=== PATIENT | female | born 1980 | race Caucasian/White ===

== ENCOUNTER 2018-07-23 11:06 | Emergency (ER) | payer OTHER ==
[~2018-07-23] VITALS: Ht 175.3 cm; Wt 127.0 kg
[~2018-07-23 11:06] MED LIST: AVALIDE 300-12.1 TA1; MAXFE CAPLET1 EACH PO; NORFLEX100MG; OMEPRAZOLE40 MG; PRILOSEC OTC20 MG; SULINDAC200 MG
[2018-07-23] MEDS ORDERED: ULTRACET (11:36)
[2018-07-23] MEDS ORDERED: NEURONTIN600 MG (11:37)
== END 2018-07-23 16:05 | disposition home or self-care (01) ==
LOC: ER 11:06
DX: N92.1 Excessive and frequent menstruation with irregular cycle (principal)

== ENCOUNTER 2018-08-01 12:46 | Inpatient (IN) | payer OTHER ==
[~2018-08-01 12:46] MED LIST changes: +NEURONTIN600 MG; +ULTRACET
[2018-08-04] MEDS ORDERED: LEVOTHYROXINE50 MCG PO (17:24)
[2018-08-04] MEDS ORDERED: MEGESTROL ACETA40 MG PO (17:24)
== END 2018-08-04 17:38 | disposition home or self-care (01) | DRG 760 ==
LOC: MEDI 12:46
PROC: BU4CZZZ Ultrasonography of Uterus and Ovaries (ICD-10-PCS; 2018-08-02)
PROC: 30233N1 Transfusion of Nonautologous Red Blood Cells into Peripheral Vein, Percutaneous Approach (ICD-10-PCS; principal; 2018-08-03)
DX: N92.1 Excessive and frequent menstruation with irregular cycle (principal); D62 Acute posthemorrhagic anemia; D57.80 Other sickle-cell disorders without crisis; M32.8 Other forms of systemic lupus erythematosus; E03.8 Other specified hypothyroidism; K21.9 Gastro-esophageal reflux disease without esophagitis; I10 Essential (primary) hypertension; M79.7 Fibromyalgia; E66.8 Other obesity

== ENCOUNTER 2020-08-19 15:16 | Emergency (ER) | payer OTHER ==
[~2020-08-19] VITALS: Ht 175.3 cm; Wt 131.5 kg
[~2020-08-19 15:16] MED LIST changes: +LEVOTHYROXINE50 MCG PO; +MEGESTROL ACETA40 MG PO
[2020-08-19] MEDS ORDERED: TRAZODONE HCL150 MG (15:35)
[2020-08-19] MEDS ORDERED: SIMVASTATIN5 MG (15:35)
== END 2020-08-19 22:57 | disposition home or self-care (01) ==
LOC: ER 15:16
DX: D50.0 Iron deficiency anemia secondary to blood loss (chronic) (principal); D57.80 Other sickle-cell disorders without crisis; N93.8 Other specified abnormal uterine and vaginal bleeding; N88.8 Other specified noninflammatory disorders of cervix uteri; M32.8 Other forms of systemic lupus erythematosus; R53.1 Weakness; R06.02 Shortness of breath; Z03.818 Encounter for observation for suspected exposure to other biological agents ruled out

== ENCOUNTER 2020-08-22 14:13 | Inpatient (IN) | payer OTHER ==
[~2020-08-22] VITALS: Ht 175.3 cm; Wt 290.0 kg
[~2020-08-22 14:13] MED LIST changes: +SIMVASTATIN5 MG; +TRAZODONE HCL150 MG
[2020-08-23] MEDS ORDERED: MECLIZINE HCL25 MG (13:14)
[2020-08-23] MEDS ORDERED: NAPROXEN SODIU550 MG (13:14)
[2020-08-23] MEDS ORDERED: FERROUS SULFAT325 MG (13:14)
[2020-08-23] MEDS ORDERED: IRBESARTAN300 MG (13:15)
[2020-08-23] MEDS ORDERED: HYDROXYCHLOROQ200 MG (13:15)
[2020-08-23] MEDS ORDERED: TIZANIDINE HCL4 MG (13:15)
[2020-08-23] MEDS ORDERED: SIMVASTATIN20 MG (13:16)
== END 2020-08-27 11:18 | DRG 744 ==
LOC: OB/GYN 14:13
PROVIDERS: ADMIT Specialist; ATTEND Specialist
PROC: 0UDB8ZX Extraction of Endometrium, Via Natural or Artificial Opening Endoscopic, Diagnostic (ICD-10-PCS; principal; 2020-08-22)
PROC: 30233N1 Transfusion of Nonautologous Red Blood Cells into Peripheral Vein, Percutaneous Approach (ICD-10-PCS; 2020-08-23)
DX: N84.0 Polyp of corpus uteri (principal); D62 Acute posthemorrhagic anemia; D57.1 Sickle-cell disease without crisis; Z20.828 Contact with and (suspected) exposure to other viral communicable diseases

== ENCOUNTER 2020-11-03 07:14 | Outpatient (CLI) | payer OTHER ==
[~2020-11-03 07:14] MED LIST changes: +FERROUS SULFAT325 MG; +HYDROXYCHLOROQ200 MG; +IRBESARTAN300 MG; +MECLIZINE HCL25 MG; +NAPROXEN SODIU550 MG; +SIMVASTATIN20 MG; +TIZANIDINE HCL4 MG
== END 2020-11-03 07:22 | disposition home or self-care (01) ==
LOC: RAD 07:14
PROVIDERS: ATTEND Specialist
DX: Z01.811 Encounter for preprocedural respiratory examination (principal)

== ENCOUNTER 2020-11-03 07:31 | Outpatient (CLI) | payer OTHER | END 2020-11-03 07:40 | disposition home or self-care (01) | LOC: LAB 07:31 | PROVIDERS: ATTEND Specialist | DX: D50.8 Other iron deficiency anemias (principal); E83.51 Hypocalcemia; D68.8 Other specified coagulation defects; N39.0 Urinary tract infection, site not specified; N83.209 Unspecified ovarian cyst, unspecified side; Z13.1 Encounter for screening for diabetes mellitus ==

== ENCOUNTER 2020-11-11 09:00 | Inpatient (IN) | payer OTHER ==
[~2020-11-11] VITALS: Ht 175.3 cm; Wt 131.5 kg
[2020-11-21] MEDS ORDERED: DICLOFENAC SODI50 MG (08:13)
[2020-11-21] MEDS ORDERED: CIPROFLOXACIN500 MG (08:13)
== END 2020-11-21 12:52 | disposition home or self-care (01) | DRG 742 ==
LOC: OB/GYN 11-18 05:30 → O/R 11-18 05:30 → SURH 11-18 07:00 → OB/GYN 11-18 15:05
PROVIDERS: ADMIT Specialist; ATTEND Specialist
PROC: 0UB60ZZ Excision of Left Fallopian Tube, Open Approach (ICD-10-PCS; 2020-11-18)
PROC: 0UT10ZZ Resection of Left Ovary, Open Approach (ICD-10-PCS; 2020-11-18)
PROC: 0UT90ZL Resection of Uterus, Supracervical, Open Approach (ICD-10-PCS; principal; 2020-11-18 07:00)
DX: D25.1 Intramural leiomyoma of uterus (principal); D62 Acute posthemorrhagic anemia; D25.2 Subserosal leiomyoma of uterus; N83.8 Other noninflammatory disorders of ovary, fallopian tube and broad ligament; I10 Essential (primary) hypertension